=== PATIENT | female | born 1940 | race Caucasian/White ===

== ENCOUNTER 2018-02-08 14:55 | Observation (INO) | payer OTHER ==
[~2018-02-08] VITALS: Ht 157.5 cm; Wt 46.6 kg
[~2018-02-08 14:55] MED LIST: ACCUPRIL20 MG PO; ASPIR 8181 M1 PO; BENTYL20 MG PO; CARAFATE1 GM PO; CELEXA40 MG PO; ENDOCET 10-3251 EACH PO; GABAPENTIN300 MG PO; KADIAN10 MG PO; KADIAN30 MG PO; PERCOCET 10/1 TABLET PO; PRILOSEC20 MG PO; PROMETHAZINE HC25 M1 PO; PROTONIX40 MG PO; ZANTAC150 MG PO; ZOFRAN4 MG PO
[2018-02-08 15:54] LABS: BASOPHIL (%) 0.8 % (0-1); BASOPHIL COUNT 0.1 K/uL (0-0.1); EOSINOPHIL (%) 0.5 % (0-5); EOSINOPHIL COUNT 0.1 K/uL (0-0.3); HEMATOCRIT 38.2 % (36.0-46.0); HEMOGLOBIN 12.5 G/DL (11.9-15.5); IMMATURE GRANULOCYTE (%) 0.4 % (0.0-0.7); LYMPHOCYTE (%) 15.8 % (15-42); LYMPHOCYTE COUNT 1.5 K/uL (1.0-2.8); MCH 30.6 PG (29.0-34.0); MCHC 32.7 G/DL (30.0-36.0); MCV 93.6 FL (83-99); MONOCYTE (%) 4.5 % (3-12); MONOCYTE COUNT 0.4 K/uL (0-0.8); NEUTROPHIL COUNT 7.2 K/uL (1.8-6.4); PLATELET COUNT 201 K/uL (156-360); RBC DIS.WIDTH-CV 13.5 % (11.8-14.6); RBC DIS.WIDTH-SD 46.5 % (39-53); RED BLOOD COUNT 4.08 M/uL (3.80-5.20); WHITE BLOOD COUNT 9.3 K/uL (4.1-10.2)
[2018-02-08 16:04] LABS: ALBUMIN 3.9 g/dL (3.2-4.8); CHLORIDE 105 mEq/L (99-109); POTASSIUM 4.9 mEq/L (3.7-5.4); SODIUM 141 mEq/L (136-147)
[2018-02-08 16:06] LABS: GLUCOSE 127 mg/dL (70-99); TOTAL PROTEIN 6.4 g/dL (6.4-8.3)
[2018-02-08 16:08] LABS: TOTAL BILIRUBIN 0.4 mg/dL (0.0-1.0)
[2018-02-08 16:10] LABS: ALKALINE PHOSPHATASE 55 IU/L (3-129); CREATININE 0.8 mg/dL (0.6-1.3); GFR ESTIMATE (CALCULATED) > 59 mL/min/
[2018-02-08 16:11] LABS: UREA NITROGEN (BUN) 29 mg/dL (9-23)
[2018-02-08 16:12] LABS: AST (GOT) 12 IU/L (2-34)
[2018-02-08 16:13] LABS: ALT (GPT) 11 IU/L (3-49)
[2018-02-08 16:19] LABS: TROP-I INTERPRETATION NEGATIVE; TROPONIN-I 0.07 ng/mL (0.0-0.30)
[2018-02-08] MEDS ORDERED: CLOPIDOGREL75 MG PO (17:03)
[2018-02-08] MEDS ORDERED: ATORVASTATIN CA80 MG PO (17:03)
[2018-02-08] MEDS ORDERED: NITROGLYCERIN0.4 MG SL (17:03)
[2018-02-08] MEDS ORDERED: QUINAPRIL HCL10 MG PO (17:04)
[2018-02-08] MEDS ORDERED: LOPRESSOR25 MG PO (17:04)
[2018-02-08] MEDS ORDERED: DESYREL100 MG PO (17:05)
[2018-02-08] MEDS ORDERED: BENTYL10 MG PO (17:07)
[2018-02-08] MEDS ORDERED: BUSPAR15 MG PO (17:08)
[2018-02-08 19:00] VITALS: BP 129/78
[2018-02-08 22:49] LABS: TROP-I INTERPRETATION NEGATIVE; TROPONIN-I 0.08 ng/mL (0.0-0.30)
[2018-02-08 23:19] VITALS: BP 96/55
[2018-02-09 03:31] LABS: TROP-I INTERPRETATION NEGATIVE; TROPONIN-I 0.06 ng/mL (0.0-0.30)
[2018-02-09 03:53] VITALS: BP 96/53
[2018-02-09 07:26] VITALS: BP 107/58
[2018-02-09 11:00] VITALS: BP 110/56
[2018-02-09] MEDS ORDERED: LOPRESSOR25 MG PO (13:33)
== END 2018-02-09 14:50 | disposition home or self-care (01) ==
LOC: EME 14:55 → EDOF 17:03 → 5WEST 17:03 → ENRESERV 17:04 → 5WEST 18:55
PROVIDERS: Emergency Medicine; Internal Medicine
DX: R55 Syncope and collapse (principal); R07.9 Chest pain, unspecified; R11.0 Nausea; R42 Dizziness and giddiness; I10 Essential (primary) hypertension; I25.10 Atherosclerotic heart disease of native coronary artery without angina pectoris; E78.5 Hyperlipidemia, unspecified; Z95.5 Presence of coronary angioplasty implant and graft; G89.29 Other chronic pain; R10.9 Unspecified abdominal pain; F41.9 Anxiety disorder, unspecified; F32.9 Major depressive disorder, single episode, unspecified; F17.210 Nicotine dependence, cigarettes, uncomplicated; I25.2 Old myocardial infarction; Z79.82 Long term (current) use of aspirin
CPT/HCPCS: 70450; 71046; 80053; 84484; 85025; 93005; 93306; 93880; 99281; 99285; G0378; J1650; J2405; J7040